=== PATIENT | female | born 1960 | race Caucasian/White ===

== ENCOUNTER 2016-08-22 08:36 | Observation (INO) | payer BC ==
[2016-08-22] MEDS ORDERED: Morphine INJ* 4 MG/ML 1 ML CARPUJECT IV ONE ×2 (08:53→09:41)
[2016-08-22] MEDS ORDERED: Ondansetron INJ* 2 MG/ML VIAL IV ONE (08:53)
[2016-08-22] MEDS ORDERED: NS 0.9% 1000 ML* 2,000 ML IV ONE (08:53)
[2016-08-22] MEDS ORDERED: Morphine INJ* 4 MG/ML 1 ML CARPUJECT ONE (08:57)
[2016-08-22] MEDS ORDERED: Ondansetron INJ* 2 MG/ML VIAL ONE (08:57)
[2016-08-22 09:04] LABS: Hematocrit 43 % (35-47); Hemoglobin 14.4 g/dl (12.0-16.0); Mean Corpuscular HGB Conc 33 g/dl (31-36); Mean Corpuscular Hemoglobin 31 pg (27-31); Mean Corpuscular Volume 93 fL (80-97); Mean Platelet Volume 9 um3 (7.4-10.4); Red Blood Count 4.67 10^6/ul (4.0-5.4); Red Cell Distribution Width 14 % (10.5-15)
--- NOTE | 2016-08-22 09:10 | RAD ---
INDICATION: Trauma. COMPARISON: There are no prior studies available for comparison. TECHNIQUE: A portable view of the chest was obtained. FINDINGS: Cardiac and mediastinal contours appear to be within normal limits. The lungs are clear. No pleural effusion is seen. There is no evidence for pneumothorax on this portable study. IMPRESSION: NO EVIDENCE FOR ACUTE FINDING.
[2016-08-22 09:19] LABS: Albumin 4.1 g/dL (3.2-5.2); BUN/Creatinine Ratio 27.6 (8-20); C Reactive Protein 3.95 mg/L (< 5.00); Calcium 9.7 mg/dL (8.6-10.3); EGFR African American 100.5 (>60); EGFR Non-African American 78.2 (>60); Globulin 2.8 g/dL (2-4); Potassium 3.5 mmol/L (3.5-5.0); Total Bilirubin 1.1 mg/dL (0.2-1.0); Total Protein 6.9 g/dL (6.4-8.9)
[2016-08-22] MEDS ORDERED: Iodixanol* (CONTRAST) 320 MG/ML 100 ML SDV IV ONE (09:27)
--- NOTE | 2016-08-22 09:55 | RAD ---
HISTORY: trampled by cow, trauma COMPARISONS: None TECHNIQUE: Multiple contiguous axial CT scans were obtained of the chest, abdomen, and pelvis after the administration of intravenous contrast. Coronal and sagittal multiplanar reformations are submitted for review.. Oral contrast was not administered. Delayed images were obtained through the abdomen FINDINGS: CHEST NECK AND THYROID: The lower neck and thyroid are unremarkable. CHEST WALL: There is no lower cervical, axillary, or supraclavicular lymphadenopathy by size criteria. HEART AND PERICARDIUM: The heart is unremarkable. AORTA AND PULMONARY VASCULATURE: The aorta and pulmonary vasculature are normal. MEDIASTINUM: There is no mediastinal lymphadenopathy by size criteria. CONY: There is no hilar lymphadenopathy by size criteria. AIRWAY AND ESOPHAGUS: The airway is unremarkable, without endobronchial filling defect. The esophagus is grossly normal. LUNG PARENCHYMA: The lungs are clear. PLEURA: No pleural abnormalities are noted. BONES AND SOFT TISSUES: No bone or soft tissue abnormalities are noted. ABDOMEN/PELVIS: LIVER: The liver is normal in shape, size, contour, and attenuation. BILE DUCTS: There is no intrahepatic or extrahepatic biliary dilatation. GALLBLADDER: The gallbladder is normal, without pericholecystic inflammatory change. PANCREAS: The pancreas is normal, without mass or ductal dilatation. SPLEEN: Normal in size and appearance. UPPER GI TRACT: Evaluation of the gastrointestinal tract is limited by incomplete gastric distention. The upper GI tract is unremarkable. SMALL BOWEL \T\ MESENTERY: The small bowel is normal in contour, course, and caliber. There is no obstruction or dilatation. COLON: The colon is normal in contour, course, caliber. There is no pericolonic inflammatory change. ADRENALS: Normal bilaterally. KIDNEYS: The kidneys are normal in shape, size, contour, and axis. There is no hydronephrosis or nephrolithiasis. BLADDER: The bladder is smooth in contour. PELVIC ORGANS: The uterus and adnexa are grossly normal for technique. AORTA: The aorta is normal. IVC: Unremarkable LYMPH NODES: There is no lymphadenopathy by size criteria. ABDOMINAL WALL: There is no evidence for abdominal wall hernia. BONES: There are mild diffuse degenerative changes. OTHER: There is no free intraperitoneal fluid or free intraperitoneal gas. There is no active arterial extravasation IMPRESSION: NO ACUTE CT PATHOLOGY OF THE VISUALIZED CHEST, ABDOMEN, OR PELVIS
--- NOTE | 2016-08-22 10:06 | UC ---
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 cows. She believes the cow stepped directly on her sternum. She had immediate pain, so her drove her to the ED for evaluation. She feels SOB due to pain. She denies LOC, neck pain, upper extremity pain, back or abdominal pain, and keeps repeating that it is just her chest that hurts. 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 ?: No Onset/Duration: Sudden Onset Onset Of Pain: Immediate Severity Initially: Severe Severity Currently: Severe Pain Intensity: 10 Mechanism Of Injury: Direct Blow Aggravating Factor(s): Movement Alleviating Factor(s): Nothing - Allergies/Home Medications Allergies/Adverse Reactions: Allergies Allergy/AdvReac Type Severity Reaction Status Date / Time No Known Allergies Allergy Verified 08/22/16 08:44 Home Medications: Home Medications Ascorbic Acid TAB* [Vitamin C TAB*] 500 mg PO DAILY 08/22/16 [History Confirmed 08/22/16] Cholecalciferol TAB* [Vitamin D TAB*] 1,000 unit PO DAILY 08/22/16 [History Confirmed 08/22/16] PMH/Surg Hx/FS Hx/Imm Hx Previously Healthy: Yes Endocrine History Of: Denies: Diabetes Cardiovascular History Of: Denies: Hypertension GI/ History Of: Denies: Renal Disease Cancer History Of: Denies: Breast Cancer - Surgical History Surgical History: None - Family History Known Family History: Positive: None - Social History Occupation: Employed Full-time Lives: With Family Alcohol Use: None Substance Use Type: None Smoking Status (MU): Never Smoked Tobacco Review of Systems Constitutional: Negative Skin: Negative Eyes: Negative ENT: Negative Respiratory: Shortness Of Breath - due to pain in chest on inspriration Cardiovascular: Chest Pain - reproducible Gastrointestinal: Negative Genitourinary: Negative Motor: Negative Neurovascular: Negative Musculoskeletal: Negative Neurological: Negative All Other Systems Reviewed And Are Negative: Yes Physical Exam Triage Information Reviewed: Yes Appearance: Well-Nourished, Pain Distress Vital Signs: Initial Vital Signs Temp 98.1 F 08/22/16 08:37 Pulse 88 08/22/16 08:37 Resp 20 08/22/16 08:37 BP 147/97 08/22/16 08:37 Pulse Ox 100 08/22/16 08:37 Vital Signs Reviewed: Yes Eyes: Positive: Conjunctiva Clear ENT: Positive: Hearing grossly normal, Pharynx normal Neck: Positive: Supple, Nontender, No Lymphadenopathy Respiratory: Positive: Lungs clear, Normal breath sounds. Negative: Chest non- tender - TTP bilateral pectoralis and sternum Cardiovascular: Positive: RRR Abdomen Description: Positive: Nontender, Soft. Negative: Distended, Guarding Bowel Sounds: Positive: Present Musculoskeletal: Positive: Strength Intact Neurological: Positive: Alert Psychological: Positive: Normal Response To Family Skin Exam: Normal - no ecchymosis, abrasions or lacerations Re-Evaluation - Re-Evaluation First Eval Re-Evaluation Time: 10:00 Change: Improved Comment: Patient's pain is better. She is breathing easily in no acute distress. Minor Trauma Course/Dx - Course Course Of Treatment: Patient's studies were negative for acute findings, but with the nature of her trauma and her pain, I have recommended overnight OBV. The patient and are in agreement. - Differential Dx/Diagnosis Differential Diagnosis/HQI/PQRI: Abrasion(s), Contusion(s), Fracture, Dislocation, Hematoma(s), Laceration(s), Sprain, Strain Provider Diagnoses: Rib contusions, chest trauma - Physician Notifications Discussed Patient Care With: Dr. Delacruz, emergency department attending; Dr. Mauricio, hospitalist. Discharge - Discharge Plan Condition: Stable Disposition: ADMITTED TO [facility]
[2016-08-22] MEDS ORDERED: Morphine INJ* 2 MG/ML 1 ML CARPUJECT IV PRN (11:03)
[2016-08-22] MEDS ORDERED: oxyCODONE TAB* 5 MG TAB PO PRN (11:03)
[2016-08-22] MEDS ORDERED: Ibuprofen TAB* 800 MG PO PRN (11:58)
[2016-08-22] MEDS ORDERED: Ondansetron INJ* 2 MG/ML VIAL IV PRN (11:58)
[2016-08-22] MEDS ORDERED: oxyCODONE/Acetamin 5/325 MG* TAB PO PRN (11:58)
[2016-08-22] MEDS ORDERED: NS 0.9% 1000 ML* 1,000 ML IV SCH (12:00)
[2016-08-22 12:30] LABS: Urine Bacteria Absent (Absent); Urine Bilirubin Negative (Negative); Urine Glucose Negative (Negative); Urine Nitrite Negative (Negative)
--- NOTE | 2016-08-22 15:34 | ECHO ---
Patient: [facility] Rec#: [id number] : 1960 Date: 08/22/2016 Age: 56y Height: 160.02 cm / 63.0 in Weight: 70.31 kg / 155.0 lbs Sex: F BSA: 1.74 Room#: 452 Admit Date#: 08/22/2016 Type: Inpatient Referring: Horacio Larsen NP Reading: Hay Maurice DO Operations Controller: Lolis Genao RDCS CC: Tian Cohen MD Transthoracic Echocardiogram Indication: Chest Trauma BP: 123/62 HR: 63 Rhythm: NSR Findings History: Trampled by a cow, no PMHx. Technical Comments: The study quality is good. Completed at 1438. Left Ventricle: The left ventricular chamber size is normal. There is no left ventricular hypertrophy. Global left ventricular wall motion and contractility are within normal limits. There is normal left ventricular systolic function. The estimated ejection fraction is 55-60%. Normal left ventricular diastolic filling is observed. Left Atrium: The left atrium is slightly dilated. Right Ventricle: The right ventricular chamber size and systolic function are within normal limits. Right Atrium: The right atrial cavity size is normal. Aortic Valve: The aortic valve is trileaflet. There is no evidence of aortic regurgitation. There is no evidence of aortic stenosis. Mitral Valve: The mitral valve leaflets appear normal. There is trace to mild mitral regurgitation. There is no evidence of mitral stenosis. Tricuspid Valve: The tricuspid valve leaflets are normal. There is trace to mild tricuspid regurgitation. No pulmonary hypertension is noted. There is no tricuspid stenosis. Pulmonic Valve: The pulmonic valve structure is not well visualized. There is no evidence of pulmonic regurgitation. There is no pulmonic stenosis. Pericardium: There is no significant pericardial effusion. Aorta: There is no dilatation of the ascending aorta. The aortic arch is not well visualized. There is no dilation of the aortic root. Pulmonary Artery: The main pulmonary artery appears normal. Venous: The venous system is not well visualized. Conclusions The left ventricular chamber size is normal. There is no left ventricular hypertrophy. There is normal left ventricular systolic function. The estimated ejection fraction is 55-60%. The left atrium is slightly dilated. The right ventricular chamber size and systolic function are within normal limits. No significant valvular abnormalities noted There is no significant pericardial effusion. No prior studies available for comparison at time of interpretation. Measurements Name Value Normal Range RVIDd (AP) 2D 1.9 cm (0.9 - 2.6) RVDdMajor (2D) 2.8 cm (2.2 - 4.4) RAd ISD 4CH 3.9 cm (3.4 - 4.9) RA (A4C)W 3.2 cm (2.9 - 4.6) IVSd (2D) 0.8 cm (0.6 - 1) LVPWd (2D) 0.8 cm (0.6 - 1) LVIDd (2D) 3.9 cm (3.6 - 5.4) LVIDs (2D) 2.9 cm - LV FS (2D) 26 % (25 - 45) Aortic Annulus 1.7 cm (1.4 - 2.6) Ao root diameter (2D) 2.9 cm (2.1 - 3.5) Ascending Ao 2.6 cm (2.1 - 3.4) Aortic arch 2.2 cm (1.8 - 3.4) Descending Ao 0.7 cm - LA dimension (AP) 2D 4 cm (2.3 - 3.8) LAd ISD 4CH 4.7 cm (2.9 - 5.3) LA ISD 4CH W 3.2 cm (2.5 - 4.5) Name Value Normal Range LA ESV SP 4CH (A/L) 45 ml - LA ESV SP 2CH (A/L) 67 ml - LA ESV BP (A/L) 57 ml - LA ESV BP (A/L) index 32.58 ml/m2 - LA ESV SP 4CH (MOD) 41 ml - LA ESV SP 2CH (MOD) 64 ml - Name Value Normal Range MV E-wave Vmax 0.9 m/sec - MV deceleration time 178 msec - MV A-wave Vmax 0.8 m/sec - MV E:A ratio 1.13 ratio - LV septal e' Vmax 0.12 m/sec - LV lateral e' Vmax 0.11 m/sec - LV E:e' septal ratio 7.5 ratio - LV E:e' lateral ratio 8.18 ratio - Name Value Normal Range AV Vmax 1.6 m/sec - AV VTI 36.9 cm - AV peak gradient 9.6 mmHg - AV mean gradient 5.18 mmHg - LVOT Vmax 1.3 m/sec - LVOT VTI 27 cm - LVOT peak gradient 6.43 mmHg - LVOT mean gradient 2.81 mmHg - Name Value Normal Range TR Vmax 2.4 m/sec - TR peak gradient 24 mmHg - RAP 8 mmHg - RVSP 32 mmHg - Name Value Normal Range PV Vmax 0.8 m/sec - PV peak gradient 2.56 mmHg -
[2016-08-22] MEDS: Acetaminophen TAB* 325 MG PO PRN ×2 (17:37→22:11)
--- NOTE | 2016-08-22 19:38 | HP ---
HISTORY AND PHYSICAL: DATE OF ADMISSION: 08/22/16 PRIMARY CARE PROVIDER: Dr. Cohen. ATTENDING PHYSICIAN WHILE IN THE HOSPITAL: Judith Mauricio DO * (report dictated by Corey Larsen NP). CHIEF COMPLAINT: Trauma, cow stepped on chest. HISTORY OF PRESENT ILLNESS: Ms. Garrett is a 56-year-old female patient who has had no previous past medical problems, who today was feeding her [place] cattle, and unfortunately there were 2 particular female cows that were near her, the first cow pushed the patient and she lost her footing in the manure where she was standing and she fell down, and the second cow kept walking and stepped on her chest. Fortunately, she was not on a hard surface. She actually landed in manure, but the cow did press down, she does not know how long, she thinks it was only seconds. As soon as the cow realized what was happening, the cow ran off and did not step on her head or any other part of her body, it was just the center of her chest. The patient states that she immediately was stunned. She could not take a deep breath, because it hurt. She was able to get out of the pasture. She climbed over the fence and sat down on a bale of hay, while sitting there the pain started getting worse and worse and it was hard for her to take a deep breath because of the pain. Her was there, witnessed the event. The patient states she did not faint, she did not lose consciousness after being stepped on, there was no trauma to the head that she is aware of. The patient states that she had no abdominal discomfort. She denies any back pain. She states really the only pain that she has now is when she takes a deep breath and her chest feels tender to touch. She was concerned because of the pain and what had happened. She thinks the cow maybe weighed 1500 pounds, and so she came in to the hospital to be evaluated. She was evaluated here in the ED. Fortunately, her imaging showed no evidence of trauma and her troponin was 0. However, she still had some pain when taking a deep breath and it was felt safest to evaluate her and observe her overnight to make sure that she did not have any sequelae from the event, so we were asked to evaluate for admission. PAST MEDICAL HISTORY: Denied. PAST SURGICAL HISTORY: She has had D and C. HOME MEDICATIONS: Include: 1. Vitamin D 1000 units daily. 2. Vitamin C 500 units daily. ALLERGIES TO MEDICATIONS: Include TYLENOL NO. 3. FAMILY HISTORY: Was reviewed but noncontributory. SOCIAL HISTORY: She rarely drinks alcohol. She does not smoke. 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 Surrogate decision maker is her . REVIEW OF SYSTEMS: There is no documented fever. She denied having any double vision or discharge. No rhinorrhea. There is no sore throat. No thyroid enlargement. There is chest pain per my HPI. There is no shortness of breath now. She denies having any orthopnea. No nocturnal dyspnea. No abdominal pain. No nausea. No vomiting. No dysuria. No frequency. No loss of consciousness. No pruritus and no skin ulcerations. Review of 14 systems completed, all others negative. PHYSICAL EXAMINATION GENERAL: At this time, Ms. Garrett is a 56-year-old female patient, she does not appear to be in any acute distress. She is sitting in the ER stretcher. She is awake and then she is alert and she is oriented x3. She appears well nourished, well developed. VITAL SIGNS: Blood pressure 131/78, pulse 62, respirations 18, O2 sat 100%, temperature 98.1. HEENT: Head is atraumatic. Eyes: Sclerae anicteric. Throat: Oral mucosa appears to be moist. No oropharyngeal erythema. NECK: Supple. CHEST: She did have tenderness elicited in the midsternal area just about the xiphoid process. There was no obvious trauma or bruising noted at this point. LUNGS: Were clear to auscultation. There was no wheezing, rales or rhonchi. HEART: Sounds S1, S2. They were not distant. There was no murmurs, rubs or gallops. ABDOMEN: Soft. It was flat. Nontender. Bowel sounds are present. EXTREMITIES: Pulses were 2+ throughout. She is able to move all 4 extremities with 5/5 strength. NEUROLOGIC: The patient is awake, alert, oriented x3. No gross focal deficits. The skin is intact. LABORATORY DATA: The labs today reveal a WBC of 5.0, RBC of 4.67, hemoglobin 14.4, hematocrit 43, platelet count of 200. Sodium was 138, potassium was 3.5, chloride 105, bicarb 26, BUN 21, creatinine 0.76, glucose 89, calcium 9.7, total bilirubin 1.1. AST 40, ALT 41, alk phos 52. Troponin 0. Albumin 4.1. She had a chest x- ray obtained today, under my review I did not appreciate any acute infiltrates. Radiology read it as no acute findings. I did not see any obvious rib fractures. She ended up getting a chest, abdomen and pelvis CT scan as well, which did show no acute CT pathology of the visualized chest, abdomen or pelvis. The aorta appeared to be stable, both in the chest and in the abdomen. She did have a EKG obtained today which showed a normal sinus rhythm. No ST elevations or T-wave inversions were noted. Old medical records were reviewed. ASSESSMENT AND PLAN: Ms. Garrett is a 56-year-old female patient coming in to the ER today with complaints of having trauma to the chest from a cow stepping on it. She was admitted under observation status for: 1. Chest trauma: At this point, I would like to observe her overnight. I think an echo is appropriate, we will cycle her troponins. Should she start having any worsening pain or back pain, I would have a low threshold to transfer her to a tertiary center for trauma for further evaluation, but at this point morphine, she is very comfortable, she is able to take deep breath. I think her saving vidal at this point was the fact that she landed in a pile of manure, which probably sustained most of the impact, so we will need to just continue to follow her and I did offer her Motrin and Tylenol for pain, as that is all she wants for the time being and will continue to monitor. 2. DVT prophylaxis. She will be placed on SCD's. 3. Fluid, electrolytes and nutrition. She can have a regular diet. 4. Code Status: She is a full code. TIME SPENT: Time spent on the admission was 60 minutes; greater than half the time was spent [id number] with the patient obtaining my history and physical, other half time spent going over the plan of care with the patient and implementing the plan of care. I did discuss the plan of care with my attending, Dr. Mauricio, she is in agreement. DESMOND LARSEN NP CC: Dr. Cohen * [id number]/[facility] #: [id number] [place]
[2016-08-23] MEDS: Acetaminophen TAB* 325 MG PO PRN ×2 (06:05→11:02)
[2016-08-23 06:13] LABS: Hematocrit 41 % (35-47); Hemoglobin 13.7 g/dl (12.0-16.0); Mean Corpuscular HGB Conc 33 g/dl (31-36); Mean Corpuscular Hemoglobin 31 pg (27-31); Mean Corpuscular Volume 93 fL (80-97); Mean Platelet Volume 9 um3 (7.4-10.4); Red Blood Count 4.43 10^6/ul (4.0-5.4); Red Cell Distribution Width 14 % (10.5-15); White Blood Count 6.2 10^3/ul (3.5-10.8)
[2016-08-23 06:32] LABS: BUN/Creatinine Ratio 13.3 (8-20); Calcium 9.1 mg/dL (8.6-10.3); EGFR African American 132.1 (>60); EGFR Non-African American 102.7 (>60); Potassium 3.8 mmol/L (3.5-5.0)
[2016-08-23 06:56] VITALS: BP 115/62
[2016-08-23] MEDS ORDERED: Ascorbic Acid TAB* 500 MG PO SCH (09:00)
[2016-08-23] MEDS ORDERED: Cholecalciferol TAB* 1000 UNITS PO SCH (09:00)
--- NOTE | 2016-08-23 11:22 | PN ---
Subjective Date of Service: 08/23/16 Interval History: Ms. Garrett denies complaint and is very eager to be discharged. Objective Active Medications: Acetaminophen (Tylenol Tab*) 650 mg PO Q4H PRN Ascorbic Acid (Vitamin C Tab*) 500 mg PO DAILY KIRK Cholecalciferol (Vitamin D Tab*) 1,000 units PO DAILY KIRK Ibuprofen (Motrin Tab*) 800 mg PO Q8H PRN Morphine Sulfate (Morphine Inj (Syringe)*) 2 mg IV Q2H PRN Ondansetron HCl (Zofran Inj*) 4 mg IV Q6H PRN Oxycodone HCl (Roxycodone Tab*) 5 mg PO Q4H PRN Oxycodone/Acetaminophen (Percocet 5/325 Tab*) 1 tab PO Q4H PRN Vital Signs 08/22/16 08/22/16 08/22/16 12:00 12:22 13:17 Temperature 98.0 F Pulse Rate 70 74 73 Respiratory 15 19 16 Rate Blood Pressure 123/62 136/82 (mmHg) O2 Sat by Pulse 100 98 99 Oximetry 08/22/16 08/22/16 08/22/16 14:32 15:16 16:05 Temperature 98 F 97.7 F Pulse Rate 73 60 Respiratory 16 Rate Blood Pressure 136/82 121/75 (mmHg) O2 Sat by Pulse 99 97 99 Oximetry 08/22/16 08/22/16 08/23/16 19:43 23:51 04:24 Temperature 98.2 F 98.3 F 98.1 F Pulse Rate 58 67 60 Respiratory 17 16 16 Rate Blood Pressure 144/85 124/72 115/62 (mmHg) O2 Sat by Pulse 100 100 98 Oximetry Oxygen Devices in Use Now: None Appearance: Female sitting up in bed in NAD Respiratory: Symmetrical Chest Expansion and Respiratory Effort, Clear to Auscultation Cardiovascular: NL Sounds; No Murmurs; No JVD, No Edema Abdominal: NL Sounds; No Tenderness; No Distention Extremities: No Edema Skin: - - Ecchymosis to medial left breast Neurological: Alert and Oriented x 3, NL Muscle Strength and Tone Nutrition: Taking PO's Result Diagrams: 08/23/16 05:54 08/23/16 05:54 Assess/Plan/Problems-Billing Assessment: Mr. Garrett is a 56 yo female with no significant PMH who was admitted on after a cow stepped on her chest. - Patient Problems (1) Trauma of chest Comment: Pt states she feels much better. Her CT chest/abd/pelvis showed no acute injury. Echo showed intact EF and no wall motion or valvular abnormalities, no pericardial effusion. No events on telemetry. Status and Disposition: OBV. Discharge to home.
--- NOTE | 2016-08-24 01:41 | DS ---
AMENDED REPORT NOW INCLUDES COSIGNER - ESIGNED BEFORE ADJUSTMENT HOSPITAL MEDICINE DISCHARGE SUMMARY: DATE OF ADMISSION: 08/22/16 DATE OF DISCHARGE: 08/23/16 PRIMARY CARE PHYSICIAN: Dr. Cohen. ATTENDING PHYSICIAN: Dr. Judith Mauricio * (dictation provided by Thaddeus Peralta NP ) PRIMARY DIAGNOSIS: Trauma to left chest wall after being stepped on accidentally by cow. SECONDARY DIAGNOSIS: None. MEDICATIONS: None. HOSPITAL COURSE: Ms. Garrett is a 56-year-old female with no significant past medical history who presented to the emergency room on 08/22/16 after an unfortunate episode when a cow stepped on her chest. Please see the dictated H and P from Horacio Larsen NP, for complete details. The patient was evaluated in the emergency room. She had a CT exam of the chest, abdomen, and pelvis, which showed no acute injury and was read as follows "no acute CT pathology of the visualized chest, abdomen, or pelvis." She had chest x-ray, which showed no abnormality. She had EKG, which showed no arrhythmia or evidence of ischemia. She had a transthoracic echocardiogram. It showed intact ejection fraction with no evidence of wall motion or valvular abnormality as well as no evidence of significant pericardial effusion. Ms. Garrett was placed on observation in the hospital and monitored. Telemetry showed no evidence of arrhythmia. She is ambulating in her room easily. She is not requiring any narcotics or pain relief. She is eager for discharge to home and is medically stable to do so. DISPOSITION: To home. DIET: Regular. ACTIVITIES: As tolerated. FOLLOWUP PLANS: Please follow up with Dr. Cohen in the next 1 to 2 weeks regarding this observation stay in the hospital. TIME SPENT: Approximately 30 minutes was spent in the discharge of this patient ; more than half the time was spent with her at the bedside reviewing the events leading up to this hospitalization and during this hospitalization, performing the physical examination, and reviewing the plan of care. THADDEUS PERALTA NP CC: Dr. Cohen * [id number]/[facility] #: [id number] [facility]
== END 2016-08-23 12:45 | disposition home or self-care (01) ==
LOC: ED 08:36 → MEDTELE 11:03
PROVIDERS: ADMIT Hospitalist; ATTEND Hospitalist
DX: S29.8XXA Other specified injuries of thorax, initial encounter (principal); S21.109A Unspecified open wound of unspecified front wall of thorax without penetration into thoracic cavity, initial encounter; W55.29XA Other contact with cow, initial encounter; Y93.K2 Activity, milking an animal; Y92.71 Barn as the place of occurrence of the external cause; R06.02 Shortness of breath; Z79.899 Other long term (current) drug therapy
CPT/HCPCS: 36415; 71010; 71260; 74177; 80048; 80053; 81003; 81015; 84484; 85025; 85610; 86140; 87086; 93005; 93306; 96361; 96374; 96375; 96376; 99284; A9270-GY; G0378; J2270; J2405; Q9967

== ENCOUNTER 2021-02-28 07:30 | Inpatient (IN) ==
[~2021-02-28 07:30] MED LIST: Buffered Lidocaine 1% SYRIN 1 ml INTRADERM ONE; Lactated Ringers 1000 ml BAG 1,000 ML IV SCH
[2021-02-28] MEDS ORDERED: ceFAZolin 2 GM in NS PREMIX 2 GM/100 ML BAG IVPB ONE (08:07)
[2021-02-28] MEDS ORDERED: Phenylephrine IV 10 MG/ML 1 ml VIAL ONE (08:28)
[2021-02-28] MEDS ORDERED: ROPIVACAINE 5 MG/ML 30 ML BTL (0.5%) ONE ×2 (08:48→09:16)
[2021-02-28] MEDS ORDERED: Midazolam 2 mg/2 ml VIAL 1 mg/ml 2 ml VIAL (2 mg) ONE ×2 (08:55→09:05)
[2021-02-28] MEDS ORDERED: fentaNYL 100 mcg/2 ml 50 MCG/ML VIAL ONE ×2 (08:56→09:46)
[2021-02-28] MEDS ORDERED: Dexamethasone IV 4 MG/ML VIAL 1 ml VIAL ONE (08:56)
[2021-02-28] MEDS ORDERED: Ondansetron 4 mg VIAL 2 MG/ML 2 ml VIAL ONE (10:09)
[2021-02-28] MEDS ORDERED: Ondansetron 4 mg VIAL 2 MG/ML 2 ml VIAL IV PRN ×2 (10:13→10:24)
[2021-02-28] MEDS ORDERED: HYDROmorphone 1 MG/1 ML SYRINGE IV PRN (10:13)
[2021-02-28] MEDS ORDERED: Naloxone 0.4 mg VIAL 0.4 mg/ml 1 ml VIAL IV PRN (10:13)
[2021-02-28] MEDS ORDERED: Metoclopramide 5 MG/ML VIAL (10 mg) IV PRN (10:13)
[2021-02-28] MEDS ORDERED: diPHENhydraMINE IV 50 MG/ML 1 ml VIAL (BENADRYL) IV PRN ×2 (10:13→10:24)
[2021-02-28] MEDS ORDERED: HYDROcodone/ACETAMIN 5/325 mg TAB PO PRN (10:13)
[2021-02-28] MEDS ORDERED: Magnesium Hydroxide LIQ 30 ML UDC PO PRN (10:24)
[2021-02-28] MEDS ORDERED: Ondansetron ODT 4 mg TAB 4 MG TAB PO PRN (10:24)
[2021-02-28] MEDS ORDERED: diPHENhydraMINE 25 mg TAB PO PRN (10:24)
[2021-02-28] MEDS ORDERED: Lactulose 30 ml UDC PO PRN (10:24)
[2021-02-28] MEDS ORDERED: Propofol 10 MG/ML 20 ML BTL ONE (11:00)
[2021-02-28] MEDS: Lactated Ringers 1000 ml BAG 1,000 ML IV SCH ×2 (12:59→23:49)
[2021-02-28] MEDS: ceFAZolin 1 GM ADVAN 1 GM in NS 0.9% 50 ML 50 ML IVPB SCH ×2 (16:03→23:50)
[2021-02-28] MEDS: Magnesium Hydroxide LIQ 30 ML UDC PO SCH (21:04)
[2021-03-01 07:26] LABS: Hematocrit 38 % (35-47); Hemoglobin 12.9 g/dL (12.0-16.0); Mean Platelet Volume 8.7 fL (7.4-10.4); Platelet Count 224 10^3/uL (150-450)
[2021-03-01 07:33] LABS: Calcium 9.1 mg/dL (8.6-10.3); EGFR African American 102.6 (>60); EGFR Non-African American 84.8 (>60); Potassium 3.6 mmol/L (3.5-5.0)
[2021-03-01] MEDS: ceFAZolin 1 GM ADVAN 1 GM in NS 0.9% 50 ML 50 ML IVPB SCH (07:44)
[2021-03-01] MEDS: Magnesium Hydroxide LIQ 30 ML UDC PO SCH (07:54)
[2021-03-01 08:39] VITALS: BP 133/73
[2021-03-01] MEDS ORDERED: Vitamin THERAPEUTIC TAB PO SCH (09:00)
== END 2021-03-01 10:55 | disposition home or self-care (01) | DRG 302 ==
LOC: AA 07:47 → SSU 13:51
PROVIDERS: ADMIT Orthopaedic Surgery Adult Reconstructive Orthopaedic Surgery; ATTEND Orthopaedic Surgery Adult Reconstructive Orthopaedic Surgery